=== PATIENT | female | born 1935 | race Caucasian/White ===

== ENCOUNTER → 2016-12-10 | Outpatient (CLI) | payer OTHER ==
[~2016-12-10] MED LIST: BARIUM SULFATE 135 ML SUSP.RECON (E-Z-HD) PO ONE
== END | disposition home or self-care (01) ==
LOC: SRD 09:26
PROVIDERS: ATTEND Otolaryngology
DX: R13.19 Other dysphagia (principal)
CPT/HCPCS: 74230; 92611-GN